=== PATIENT | female | born 1965 | race Caucasian/White ===

== ENCOUNTER 2020-06-09 15:37 | Outpatient (CLI) | payer OTHER ==
[2020-06-09] MEDS ORDERED: GADOBUTROL 7.5 MMOL/7.5 ML VIAL ONE (16:59)
[2020-06-09] MEDS ORDERED: GADOBUTROL 7.5 MMOL/7.5 ML VIAL IVP ONE (17:30)
--- NOTE | 2020-06-11 10:14 | MRI Report ---
PROCEDURE: Lumbar Spine W/WO INDICATIONS: LUMBAR SPINAL STENOSIS CONTRAST: IV CONTRAST: Gadavist ml: 6 TECHNIQUE: Noncontrast sagittal T1 spin echo and T2 fast spin echo, sagittal STIR, axial T1 and T2 fast spin ech o through the lumbar spine. In cases with scoliosis, additional coronal T2 fast spin echo may be per formed. After the administration of contrast, sagittal and axial T1 spin echo with fat saturation th rough the lumbar spine. COMPARISON: None. FINDINGS: Image quality: Suboptimal due to failure of fat suppression of the axial postcontrast pulse sequence. Alignment and curvature: Trace retrolisthesis of L3 on L4. Trace anterolisthesis of L4 on L5.. Marrow: No fracture. Scattered multilevel endplate spurring and diffuse facet arthropathy. Postsurgical changes related to posterior decompression at the L4-L5 level. There is associated posto perative enhancement, with no associated canal narrowing. There is questionable postoperative enhanci ng granulation tissue within the L4-L5 neural foramen bilaterally, however does not definitely abut t he exiting nerve roots. Spinal cord: Conus medullaris terminates at the L1 level. Visualized spinal cord demonstrates norm al signal, without suspicious enhancement. Paraspinous soft tissues: Subcentimeter renal foci which are statistically cysts, however too to mariam racterize accurately and therefore technically indeterminate. T12-L1: Normal in appearance. L1-L2: Normal in appearance. L2-L3: Normal in appearance. L3-L4: Normal in appearance. L4-L5: Mild residual canal narrowing. Partial effacement of the left and right lateral recesses wit h symmetric appearance. Mild bilateral foraminal stenoses. L5-S1: Mild canal narrowing. Partial effacement of the left and right lateral recesses with symmetr ic appearance. Moderate left foraminal stenosis with slight nerve root compression. Mild right forami nal narrowing IMPRESSION: Postsurgical and degenerative changes as above. No high-grade residual canal stenosis Moderate left L5-S1 foraminal stenosis. Multilevel spondylolistheses as above. Reviewed by: Barry Silva MD on 06/11/2020 10:13 AM PST Approved by: Barry Silva MD on 06/11/2020 10:13 AM PST Station ID: [id number]
== END 2020-06-09 15:38 | disposition home or self-care (01) ==
LOC: DI 15:37
PROVIDERS: ATTEND Student in an Organized Health Care Education/Training Program
DX: M48.061 Spinal stenosis, lumbar region without neurogenic claudication (principal); M43.17 Spondylolisthesis, lumbosacral region
CPT/HCPCS: 72158; A9585

== ENCOUNTER 2022-06-12 06:06 | Day surgery (SDC) | payer OTHER ==
[2022-06-12] MEDS ORDERED: LACTATED RINGERS 1,000 ML IV ONE (06:10)
--- NOTE | 2022-06-12 07:10 | ANESTHESIA ---
Pre-Anesthesia VS, & Labs - Diagnosis screening exam - Procedure colonoscopy Vital Signs: Temp Pulse Resp BP Pulse Ox O2 Flow Rate 36.3 C L 77 16 168/99 H 98 06/12/22 06:11 06/12/22 06:11 06/12/22 06:11 06/12/22 06:11 06/12/22 06:11 Height: 5 ft 1 in Weight (kg): 59 kg Body Mass Index: 24.5 BMI Classification: Normal - NPO >8 hours - Is Patient ?: No Home Medications and Allergies Home Medications: Ambulatory Orders Losartan [Cozaar] 100 mg PO DAILY 06/11/22 Meloxicam [Mobic] 7.5 mg PO DAILY 06/11/22 amLODIPine [Norvasc] 5 mg PO DAILY 06/11/22 Losartan [Cozaar] 100 mg PO DAILY 06/11/22 Meloxicam [Mobic] 7.5 mg PO DAILY 06/11/22 amLODIPine [Norvasc] 5 mg PO DAILY 06/11/22 Allergies/Adverse Reactions: Allergies Allergy/AdvReac Type Severity Reaction Status Date / Time promethazine [From Phenergan] AdvReac Unknown Verified 06/11/22 10:11 Anes History & Medical History - Anesthetic History Anesthesia Complications: reports: Post-Operative Nausea/Vomiting - Medical History Cardiovascular: reports: Hypertension Pulmonary: reports: None Gastrointestinal: reports: None Urinary: reports: None Neuro: reports: None Musculoskeletal: reports: Osteoarthritis, Chronic back pain Endocrine/Autoimmune: reports: None Blood Disorders: reports: None Skin: reports: None Smoking Status: Never smoker Psychosocial: reports: Alcohol (6 oz per day) History of Cancer?: No - Surgical History Gynecologic: reports: Endometrial ablation Orthopedic: reports: Rotator cuff repair, Spine surgery Exam General: Alert, Oriented x3, Cooperative, No acute distress Dental: WNL Mouth Openin Fingerbreadth Neck Mobility: Normal Mallampati classification: III Thyromental Distance: 4-6 cm Mental/Cognitive Status: Alert/Oriented X3, Normal for patient Plan Anesthesia Type: General Consent for Procedure(s) Verified and Reviewed: Yes Code Status: Attempt Resuscitation ASA classification: 2-Mild systemic disease Is this case an emergency?: No
[2022-06-12] MEDS ORDERED: PROPOFOL 500 MG/50 ML 500 MG/50 ML VIAL ONE (07:15)
[2022-06-12] MEDS ORDERED: MIDAZOLAM 2 MG/2 ML VIAL ONE (07:16)
[2022-06-12] MEDS ORDERED: LACTATED RINGERS 500 ML IV ONE (08:26)
[2022-06-12 08:47] VITALS: BP 152/99
--- NOTE | 2022-06-12 11:18 | ANESTHESIA POST OP EVALUATION ---
Anesthesia Post Eval - Post Anesthesia Eval Vitals: Last Vital Signs Temp 36.3 C L 06/12/22 08:46 Pulse 58 L 06/12/22 08:46 Resp 16 06/12/22 08:46 BP 152/99 H 06/12/22 08:46 Pulse Ox 99 06/12/22 08:46 O2 Flow Rate CV Function Including HR & BP: Stable Pain Control: Satisfactory Nausea & Vomiting: Negative Mental Status: Baseline Respiratory Status: Airway Patent Hydration Status: Satisfactory Anesthesia Complications: None
== END 2022-06-12 06:07 | disposition home or self-care (01) ==
LOC: SDS 06:06
PROVIDERS: ATTEND Surgery
DX: Z12.11 Encounter for screening for malignant neoplasm of colon (principal)
CPT/HCPCS: 45378; J7120